=== PATIENT | male | born 1985 | race Caucasian/White ===

== ENCOUNTER 2016-10-28 19:26 | Emergency (ER) | payer OTHER ==
[~2016-10-28] VITALS: Ht 175.3 cm; Wt 78.0 kg
[2016-10-28 19:48] LABS: ADD MIUA? YES; BILIRUBIN SMALL; BLOOD MODERATE; COLOR AMBER ((YELLOW)); GLUCOSE (STRIP) NEGATIVE; KETONES 5; LEUKOCYTES TRACE; NITRITE NEGATIVE; PROTEIN (STRIP) 100; SPECIFIC GRAVITY 1.035 (1.000-1.030)
[2016-10-28 19:54] LABS: BACTERIA RARE /HPF; CALCIUM OXALATE CRYSTALS 1+ /HPF; EPITHELIAL CELLS RARE /HPF; MUCUS 4+ /LPF; RED BLOOD CELLS 20-30 /HPF (0-5); UCUL ADDED? NO; WHITE BLOOD CELLS 0-5 /HPF (0-5)
[2016-10-28 20:22] LABS: HEMATOCRIT 43.5 % (38.0-50.0); MCH 31.3 PG (29.0-34.0); MCHC 33.8 G/DL (30.0-36.0); MCV 92.8 FL (86-99); MEAN PLAT.VOLUME 10.3 uM^3 (9.0-12.4); PLATELET COUNT 274 K/uL (156-360); RBC DIS.WIDTH-CV 12.8 % (11.8-14.6); RBC DIS.WIDTH-SD 43.5 % (39-53); RED BLOOD COUNT 4.69 M/uL (4.00-5.50); WHITE BLOOD COUNT 11.7 K/uL (4.1-10.2)
[2016-10-28 20:34] LABS: CHLORIDE 107 mEq/L (99-109); POTASSIUM 3.6 mEq/L (3.7-5.4); SODIUM 141 mEq/L (136-147)
[2016-10-28 20:36] LABS: GLUCOSE 99 mg/dL (70-99)
[2016-10-28 20:38] LABS: ANION GAP 12 MEQ/L (2-14)
[2016-10-28 20:40] LABS: GFR ESTIMATE (CALCULATED) > 59 mL/min/
[2016-10-28 20:41] LABS: UREA NITROGEN (BUN) 16 mg/dL (9-23)
[2016-10-28] MEDS ORDERED: MOTRIN600 MG PO (21:46)
[2016-10-28] MEDS ORDERED: PERCOCET 5/31 TABLET PO (21:46)
[2016-10-28] MEDS ORDERED: FLOMAX0.4 MG PO (21:46)
[2016-10-28] MEDS ORDERED: ZOFRAN ODT4 MG PO (21:46)
[2016-10-28 22:21] VITALS: BP 119/64
== END 2016-10-28 22:26 | disposition home or self-care (01) ==
LOC: EME → EDBD 19:26 → EME 22:26
DX: N20.1 Calculus of ureter (principal); F17.200 Nicotine dependence, unspecified, uncomplicated
CPT/HCPCS: 74176; 80048; 81003; 85027; 99281; 99284; J1885; J3010; J7030